=== PATIENT | male | born 1965 | race Caucasian/White ===

== ENCOUNTER 2018-09-22 08:16 | Emergency (ER) | payer OTHER ==
[~2018-09-22] VITALS: Ht 180.3 cm; Wt 80.7 kg
== END 2018-09-22 13:15 | disposition home or self-care (01) ==
LOC: ER 08:16
DX: R10.11 Right upper quadrant pain (principal); M25.522 Pain in left elbow

== ENCOUNTER 2019-02-09 17:43 | Outpatient (CLI) | payer OTHER | END 2019-02-09 18:02 | disposition home or self-care (01) | LOC: LAB 17:43 | DX: N39.0 Urinary tract infection, site not specified (principal) ==

== ENCOUNTER 2019-10-05 15:04 | Outpatient (CLI) | payer OTHER | END 2019-10-05 15:08 | disposition home or self-care (01) | LOC: LAB 15:04 | DX: R97.20 Elevated prostate specific antigen [PSA] (principal) ==

== ENCOUNTER → 2019-12-07 | Outpatient (CLI) | payer OTHER | END | disposition home or self-care (01) | LOC: SONOGRAMA 07:59 | DX: R97.20 Elevated prostate specific antigen [PSA] (principal) ==

== ENCOUNTER 2019-12-12 16:28 | Outpatient (CLI) | payer OTHER | END 2019-12-12 18:00 | disposition home or self-care (01) | LOC: LAB 16:28 | DX: N30.00 Acute cystitis without hematuria (principal) ==

== ENCOUNTER → 2019-12-21 | Outpatient (CLI) | payer OTHER | END | disposition home or self-care (01) | LOC: NUCLEAR 11-02 09:00 → SONOGRAMA 13:45 | DX: R97.20 Elevated prostate specific antigen [PSA] (principal); N40.1 Benign prostatic hyperplasia with lower urinary tract symptoms ==

== ENCOUNTER 2019-12-23 15:44 | Outpatient (CLI) | payer OTHER | END 2019-12-23 15:55 | disposition home or self-care (01) | LOC: LAB 15:44 | DX: N30.00 Acute cystitis without hematuria (principal) ==

== ENCOUNTER 2020-12-03 15:39 | Outpatient (CLI) | payer OTHER | END 2020-12-03 16:44 | disposition home or self-care (01) | LOC: OFIC 805 15:39 | PROVIDERS: ATTEND Otolaryngology Otology & Neurotology | DX: D10.5 Benign neoplasm of other parts of oropharynx (principal) ==

== ENCOUNTER 2021-04-10 08:30 | Inpatient (IN) | payer OTHER ==
[~2021-04-10] VITALS: Ht 180.3 cm; Wt 81.6 kg
[2021-04-10] MEDS ORDERED: TAMS0.4C PO (11:22)
[2021-04-12] MEDS ORDERED: SILODOSIN8 MG (15:58)
[2021-04-12] MEDS ORDERED: AMOX-CLAV 875-1 EACH (15:58)
[2021-04-12] MEDS ORDERED: AMMONIUM LACTA385 GM (15:58)
[2021-04-12] MEDS ORDERED: TERBINAFINE HC250 MG (15:58)
[2021-04-12] MEDS ORDERED: FLUTICASONE PRO15 GM (15:58)
== END 2021-04-14 12:47 | disposition home or self-care (01) | DRG 714 ==
LOC: O/R 04-12 06:26 → SURH 04-12 08:30 → SURG 04-12 13:20
PROVIDERS: ADMIT Urology; ATTEND Urology
PROC: 4A12X4Z Monitoring of Cardiac Electrical Activity, External Approach (ICD-10-PCS; 2021-04-12)
PROC: 0VT08ZZ Resection of Prostate, Via Natural or Artificial Opening Endoscopic (ICD-10-PCS; principal; 2021-04-12 11:00)
DX: N40.1 Benign prostatic hyperplasia with lower urinary tract symptoms (principal); I48.91 Unspecified atrial fibrillation; Z20.822 Contact with and (suspected) exposure to COVID-19; R33.8 Other retention of urine

== ENCOUNTER 2021-08-15 13:56 | Outpatient (CLI) | payer OTHER ==
[~2021-08-15 13:56] MED LIST: AMMONIUM LACTA385 GM; AMOX-CLAV 875-1 EACH; FLUTICASONE PRO15 GM; SILODOSIN8 MG; TAMS0.4C PO; TERBINAFINE HC250 MG
== END 2021-08-15 13:57 | disposition home or self-care (01) ==
LOC: LAB 13:56
PROVIDERS: ATTEND Internal Medicine
DX: Z20.828 Contact with and (suspected) exposure to other viral communicable diseases (principal); Z03.818 Encounter for observation for suspected exposure to other biological agents ruled out

== ENCOUNTER 2021-08-16 08:08 | Outpatient (CLI) | payer OTHER | END 2021-08-16 08:09 | disposition home or self-care (01) | LOC: NUCLEAR 08:08 | PROVIDERS: ATTEND Internal Medicine Cardiovascular Disease | DX: R07.89 Other chest pain (principal) | CPT/HCPCS: 78452; 93017; A9500 ==

== ENCOUNTER 2021-12-13 08:25 | Day surgery (SDC) | payer OTHER ==
[~2021-12-13] VITALS: Ht 180.3 cm; Wt 79.8 kg
[~2021-12-13 08:25] MED LIST changes: +TENORMIN25 MG PO; +XARELTO10 MG PO
[2021-12-13] MEDS ORDERED: PRILOSEC OTC20 MG PO (14:48)
== END 2021-12-13 18:00 | disposition home or self-care (01) ==
LOC: CIR.AMB 08:25
PROVIDERS: ATTEND Otolaryngology Otology & Neurotology
DX: D13.0 Benign neoplasm of esophagus (principal); G47.33 Obstructive sleep apnea (adult) (pediatric); R73.03 Prediabetes; F12.90 Cannabis use, unspecified, uncomplicated; I48.91 Unspecified atrial fibrillation; J38.3 Other diseases of vocal cords; Z20.822 Contact with and (suspected) exposure to COVID-19